=== PATIENT | male | born 1985 | race Caucasian/White ===

== ENCOUNTER → 2018-04-15 | Outpatient (CLI) | payer OTHER ==
--- NOTE | 2018-04-15 08:55 | MR ---
EXAMINATION TYPE: MR brain wo/w con DATE OF EXAM: 04/15/2018 COMPARISON: NONE HISTORY: 32-year-old male Headache TECHNIQUE: Multiplanar, multisequence images of the brain and brainstem were acquired before and aft er administration of 7.5 mL IV Gadavist. Diffusion weighted imaging is performed. FINDINGS: No evidence for acute infarction, hemorrhage, mass, mass effect, midline shift, herniation, effacemen t of basal cisterns, or extra-axial fluid collection. The ventricles and sulci are age-appropriate. Major intracranial flow voids are intact. T2/FLAIR weighted sequences show no white matter signal abnormality. T2* gradient sequence shows no areas of blooming artifact suggest prior intracranial microbleeds. Midline structures demonstrate normal morphology. The craniocervical junction is normal. Post contrast images demonstrate no evidence of pathologic enhancement. Dural venous sinuses are pat ent. The visualized sinuses are clear and the globes are intact. Partial opacification of the left mastoid air cells. IMPRESSION: 1. No intracranial abnormality seen. 2. Some trapped fluid in the left mastoid air cells. Correlate for any mastoid pain to exclude mastoi ditis.
== END | disposition home or self-care (01) ==
LOC: RADMRIMAIN 08:07
PROVIDERS: ATTEND Psychiatry & Neurology Neurology
DX: R51 Headache (principal)
CPT/HCPCS: 70553; A9581

== ENCOUNTER 2018-12-14 12:11 | Emergency (ER) | payer OTHER ==
--- NOTE | 2018-12-14 12:31 | ED ---
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 Patient states that he was at work today and a part hit the end of his knuckle hit his amputee site. Patient states that he had a shooting nerve pain at that time go from the knuckle of the arm. Patient states that he requested to home from work and they told him he needed to come here for evaluation. He states that he has no significant bruising or swelling to the area. He states he R he put ice on it and is helping with his pain. Patient states that he has full range of motion of the fingers, no lacerations or other complaints. - Related Data Allergies Allergy/AdvReac Type Severity Reaction Status Date / Time No Known Allergies Allergy Verified 12/14/18 12:18 Review of Systems ROS Statement: Those systems with pertinent positive or pertinent negative responses have been documented in the HPI. ROS Other: All systems not noted in ROS Statement are negative. Past Medical History Additional Past Medical History / Comment(s): Complex confusional migraines, anxiety History of Any Multi-Drug Resistant Organisms: None Reported Additional Past Surgical History / Comment(s): amputation of left second digit Past Psychological History: Anxiety Smoking Status: Current every day smoker Past Alcohol Use History: None Reported Past Drug Use History: Marijuana General Exam - General Exam Comments Initial Comments: Patient's a 33-year-old male. Alert and oriented. No significant distress. Limitations: no limitations General appearance: alert, in no apparent distress Head exam: Present: atraumatic, normocephalic, normal inspection Eye exam: Present: normal appearance, PERRL, EOMI. Absent: scleral icterus, conjunctival injection, periorbital swelling ENT exam: Present: normal exam, mucous membranes moist Neck exam: Present: normal inspection. Absent: tenderness, meningismus, lym phadenopathy Respiratory exam: Present: normal lung sounds bilaterally. Absent: respiratory distress, wheezes, rales, rhonchi, stridor Cardiovascular Exam: Present: regular rate, normal rhythm, normal heart sounds. Absent: systolic murmur, diastolic murmur, rubs, gallop, clicks GI/Abdominal exam: Present: soft, normal bowel sounds. Absent: distended, tenderness, guarding, rebound, rigid Extremities exam: Present: normal inspection, full ROM, normal capillary refill. Absent: tenderness, pedal edema, joint swelling, calf tenderness Left Hand Wrist exam: Absent: normal inspection (Patient is an amputee over the left second digit at the first phalanx. Patient has no bruise and swelling. Full range of motion in all other fingers.) Neuro motor exam: Present: wrist extension intact, thumb opposition intact, thumb IP flexion intact, thumb adduction intact, fingers 2-5 abduction intact Vascular: Present: normal capillary refill Back exam: Present: normal inspection Neurological exam: Present: alert, oriented X3, CN II-XII intact Psychiatric exam: Present: normal affect, normal mood Skin exam: Present: warm, dry, intact, normal color. Absent: rash Course Vital Signs 12/14/18 12:14 Temperature 98.5 F Pulse Rate 61 Respiratory 16 Rate Blood Pressure 133/88 O2 Sat by Pulse 98 Oximetry Medical Decision Making - Medical Decision Making Patient's a 33-year-old male presents emergency department today with complaints of hitting his amputee site over his left second digit at work today. Patient reports that he had his finger amputated at work a year ago. He states he oc casionally will have nerve pain if the site is irritated. It was hit today by a part at work. There is no bruising swelling. He states is full range of motion of the other fingers. No lacerations noted. Capillary refill is less than 2 seconds. I offered the Patient x-rays. He states it was a light parties not concerned for any fractures. 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 He states his only nerve pain and his work made him come here for evaluation. He states that he is no one any further treatment or x- rays. Patient advised to take Motrin Tylenol prior cool compresses over the area. He states he follow-up with his asset recovery specialist symptoms symptoms continue to persist. All questions answered. Disposition Clinical Impression: Nerve pain, History of amputation of finger Disposition: HOME SELF-CARE Condition: Good Instructions (If sedation given, give patient instructions): Peripheral Neuropathy (ED) Additional Instructions: Follow-up with primary care physician. Take Motrin Tylenol for pain. Ice the area. Return to the emergency department if any alarming signs or symptoms occur. Is patient prescribed a controlled substance at d/c from ED?: No Referrals: Jose Roberto Batista MD [Primary Care Provider] - 1-2 days Time of Disposition: 12:30
[2018-12-14 13:02] VITALS: BP 126/80; PULSE 62; RESP 18; TEMP 98.1
== END 2018-12-14 13:01 | disposition home or self-care (01) ==
LOC: EC 12:11
DX: M79.2 Neuralgia and neuritis, unspecified (principal); F17.200 Nicotine dependence, unspecified, uncomplicated; Z89.022 Acquired absence of left finger(s)
CPT/HCPCS: 99283